=== PATIENT | male | born 1970 | race Caucasian/White ===

== ENCOUNTER 2017-04-12 20:29 | Emergency (ER) | payer OTHER ==
[~2017-04-12] VITALS: Ht 182.9 cm; Wt 109.8 kg
[2017-04-12] MEDS ORDERED: CARVEDILOL ER40 MG PO (20:36)
[2017-04-12] MEDS ORDERED: LASIX 80 MG TAB80 MG PO (20:37)
[2017-04-12 20:57] LABS: ABSOLUTE BASOPHILS 0.1 thou/uL (0.0-0.2); ABSOLUTE EOSINOPHILS 0.2 thou/uL (0.0-0.7); ABSOLUTE LYMPHOCYTES 1.1 thou/uL (0.8-5.3); ABSOLUTE MONOCYTES 0.7 thou/uL (0.0-1.2); ABSOLUTE NEUTROPHILS 8.8 thou/uL (1.6-8.1); BASOPHILS 1.2 %; EOSINOPHILS 1.8 %; HEMATOCRIT 42.2 % (42.0-52.0); HEMOGLOBIN 13.6 gm/dL (14.0-18.0); LYMPHOCYTES 10.1 %; MCH 28.3 pg (26.0-34.0); MCHC 32.2 g/dL (28.0-37.0); MONOCYTES 6.2 %; MPV 8.4 fl. (7.2-11.1); NUCLEATED RBCS 0 /100WBC; PLATELET COUNT* 307 thou/uL (150-400); POLYS 80.7 %; RDW-CV 17.3 % (10.5-14.5)
[2017-04-12 21:06] LABS: ANION GAP 13 mmol/L (7-16); BUN 20 mg/dL (7-18); CALCIUM 8.4 mg/dL (8.5-10.1); CHLORIDE 99 mmol/L (98-107); CO2 21 mmol/L (21-32); CREATININE 2.1 mg/dL (0.6-1.3); GLUCOSE 145 mg/dL (70-99); POTASSIUM 3.7 mmol/L (3.5-5.1); SODIUM 133 mmol/L (136-145)
[2017-04-12 21:08] LABS: INR 1.3; PROTIME 12.2 Seconds (9.20-11.50)
[2017-04-12 21:17] LABS: ALBUMIN 2.6 g/dL (3.4-5.0); ALKALINE PHOSPHATASE 101 U/L (46-116); NT-PRO BRAIN NAT PEPTIDE 2965 pg/mL (<300); SGOT 23 U/L (15-37); SGPT 113 U/L (30-65); TOTAL BILIRUBIN 0.4 mg/dL (<0.1-1.0); TOTAL PROTEIN 7.2 g/dL (6.4-8.2); TROPONIN-I LEVEL <0.06 ng/mL (<0.06)
[2017-04-12] MEDS ORDERED: PROAIR HFA8.5 GM INH (22:28)
[2017-04-12 23:14] VITALS: BP 145/84
--- NOTE | 2017-04-13 15:47 | EKG ---
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 : 1970 Requested By: Eliane Sears Order Number: [id number] MD: Lamberto Dean Measurements Intervals [place] Rate: 80 P: 72 RI: 167 QRS: 64 QRSD: 106 T: 184 QT: 427 QTc: 493 Interpretive Statements Sinus rhythm Left atrial enlargement Abnormal T, consider ischemia, diffuse leads No previous ECG available for comparison Electronically Signed On 04-13-2017 15:46:47 BARIATRIC PROGRAM COORDINATOR by Lamberto Dean [email or web address] <ELECTRONICALLY SIGNED> By: Lamberto Dean MD, [facility] 04/13/17 1546 2034 2034 Lamberto Dean MD, FACC /EPI
== END 2017-04-12 22:30 | disposition home or self-care (01) ==
LOC: M.ERS 20:29
PROVIDERS: Emergency Medicine
DX: I50.9 Heart failure, unspecified (principal)